=== PATIENT | female | born 1985 | race Caucasian/White ===

== ENCOUNTER 2018-12-04 13:30 | Emergency (ER) | payer OTHER, MEDICAID, SELFPAY ==
[2018-12-04 13:36] VITALS: PULSE 133; RESP 24; TEMP 36.6; O2SAT 100; BMI 24.3
[2018-12-04] MEDS: LORazepam 2 MG/ML INJ 1 MG IM (13:47)
--- NOTE | 2018-12-04 14:11 | PC.NURSE ---
Patient feeling very hot and so gave her cold washcloths, set up fan and gave her cold ice water
[2018-12-04 14:13] LABS: Add Manual Diff / Slide Review NO; Basophils Absolute Auto 100 /uL (0-100); Basophils Percent Auto 0.5 % (0-2); Eosinophils Absolute Auto 200 /uL (0-450); Eosinophils Percent Auto 1.4 % (2-4); Hematocrit 43.7 % (36-46); Hemoglobin 15.5 g/dL (12.0-16.0); Lymphocytes Absolute Auto 1900 /uL (1100-4500); Lymphocytes Percent Auto 18.1 % (25-40); Mean Corpuscular HGB Conc 35.5 % (30-36); Mean Corpuscular Volume 87.2 fL (80-100); Monocytes Absolute Auto 900 /uL (0-900); Monocytes Percent Auto 8.3 % (3-14); Neutrophils Absolute Auto 7600 /uL (1500-7000); Neutrophils Percent Auto 71.7 % (50-75); Platelet Count 262 X10^3/uL (150-400); Red Blood Cell Count 5.01 X10^6/uL (4.0-5.2); Red Cell Distribution Width 13.4 % (11.6-14.8); White Blood Cell Count 10.5 X10^3/uL (4.5-11.0)
[2018-12-04] MEDS: ONDANSETRON 4 MG ODT SL (14:22)
[2018-12-04 14:27] LABS: Alanine Aminotransferase 19 IU/L (9-52); Albumin 4.7 g/dL (3.5-5.0); Albumin Globulin Ratio 1.6 (1.0-2.8); Alkaline Phosphatase 81 U/L (38-126); Aspartate Aminotransferase 30 IU/L (14-36); Bilirubin Total 0.4 mg/dL (0.2-1.3); Blood Urea Nitrogen 14 mg/dL (7-17); Calcium 9.9 mg/dL (8.4-10.2); Carbon Dioxide 20 mmol/L (22-32); Chloride 99 mmol/L (98-107); Estimated Glomerular Filt Rate > 60.0 mL/min (>60); Globulin 2.9 g/dL (1.7-4.1); Glucose 140 mg/dL (70-100); HEMOLYSIS < 15 (0-50); Magnesium 1.8 mg/dL (1.6-2.3); Sodium 138 mmol/L (137-145); Total Protein 7.6 g/dL (6.3-8.2)
[2018-12-04 14:27] LABS: Urine Amphetamines Negative (Negative); Urine Barbiturates Negative (Negative); Urine Benzodiazepines Negative (Negative); Urine Cocaine Negative (Negative); Urine MDMA Negative (Negative); Urine Methadone Negative (Negative); Urine Methamphetamines Negative (Negative); Urine Morphine/Opi cutoff 2000 Negative (Negative); Urine Oxycodone Negative (Negative); Urine Phencyclidine Negative (Negative); Urine Tetrahydrocannabinol Negative (Negative); Urine Tricyclic Antidepressant Negative (Negative)
--- NOTE | 2018-12-04 14:40 | ED_ITS ---
HPI - Anxiety <ODALIS Persaud - Last Filed: 12/05/18 01:42> General Chief Complaint: Anxiety Stated Complaint: Anxiety Time Seen by Provider: 12/04/18 13:38 Source: patient and EMS Mode of arrival: EMS Limitations: no limitations History of Present Illness HPI narrative: This is a 33-year-old transgender male to female, occasional smoker, brought into ED by insole buffer with acute anxiety symptoms. Patient denies chest pain, dizziness but having difficulty breathing. Patient is hy perventilating, shaking and restless when she arrived to ED. Patient reports not taking routinely Ativan but requesting something to calm herself down. She denies taking other illegal substances. Patient reports she had taken triple white chocolate latte which she usually does not take this quantity. Patient reports she has been feeling well recently and this morning. Patient reports he has a history of borderline but he is not here for this problem. She denies suicidal or homicidal ideation and is not seeking counseling services at this time. Related Data Allergies Allergy/AdvReac Type Severity Reaction Status Date / Time No Known Drug Allergies Allergy Verified 12/04/18 13:36 Review of Systems <ODALIS Persaud - Last Filed: 12/05/18 01:42> Review of Systems Narrative: General: Denies fever, chills, fatigue, malaise, sweats. HEENT: Denies sinus pain, ear pain, sore throat, difficulty swallowing, dizziness. Respiratory: Reports dyspnea. Denies Cough, wheezing, hemoptysis, sputum. Cardiovascular: Denies chest pain, palpitations, orthopnea, edema. Gastrointestinal: Denies nausea, vomiting, abdominal pain, diarrhea, constipation, melena. : Denies dysuria, frequency, incontinence, hematuria, urinary retention. Musculoskeletal: Denies weakness, joint pain or bony pain. Skin: Denies rash, skin lesions, or other. Neurologic: Denies weakness, headache, numbness, change in speech, confusion, seizures, incoordination. Psychiatric: See HPI 12-point review of systems is negative except for those stated above. PFSH <ODALIS Persaud - Last Filed: 12/05/18 01:42> Social History Smoking Status: Current some day smoker Exam <Brandon Shivani LAY OUT HELPER - Last Filed: 12/05/18 01:42> Narrative Exam Narrative: GEN: Alert, oriented x 3, very anxious, restless, and hyp erventilating. Head: Normal cephalic, atraumatic. No scalp or temporal tenderness, palpable mass or rash. EYES: Pupils are equal, round, and reactive to light and accommodation. Extraocular muscles are intact bilaterally. There is no subconjunctival hemorrhage, exudate and sclera non-icteric. ENT: Bilateral auditory canals and tympanic membranes clear. Hearing grossly intact. Nose without bleeding, purulent discharge or deviation. Mucous membrane moist, no mucosal lesion. Throat without erythema, tonsillar hypertrophy or exudate. Uvula in midline, airway patent. Neck: Trachea in midline. No JVD, non-tender without lymphadenopathy. No masses or thyroid megaly. Supple, non-tender and no meningeal signs. CARDIAC: Tachycardia rate in 120s. Normal regular rate and rhythm without murmurs, gallops, or rubs. No chest wall tenderness. No peripheral edema, cyanosis or pallor. Capillary refill is less than 2 seconds. RESPIRATORY: Tachypnea and hyperventilating. Lungs are cleat to auscultate bilaterally. No cough, wheezes, rales, or rhonchi. No stridor, respiratory di stress, increase work of breathing, or accessary muscle used. ABD: Abdomen soft, nontender and non-distended. No guarding or rebound tenderness to palpate. Bowel sounds are normal in all 4 quadrants. There is no palpable masses or organomegaly. EXT: Full painless ROM of all extremities with no loss of sensation, strength, effusion or edema. SKIN: Warm, dry, normal color for patient. No erythema, lesions or rash over visible areas. BACK: Nontender without deformity or crepitance. No flank tenderness. NEUROLOGICAL: Alert and oriented to place, time and person. Sensation and motor function intact bilaterally. No facial droops, dysphasia. PSYCHIATRIC: Anxious. No hallucinations. Difficulty following direction during the examination. Cooperative. Patient is not suicidal or homicidal. Initial Vital Signs Initial Vital Signs: Vital Signs Temperature 97.8 F 12/04/18 13:36 Pulse Rate 133 H 12/04/18 13:36 Respiratory Rate 24 12/04/18 13:36 Pulse Oximetry 100 12/04/18 13:36 <Wyatt Love DO - Last Filed: 12/12/18 18:56> Initial Vital Signs Initial Vital Signs: Vital Signs Temperature 97.8 F 12/04/18 13:36 Pulse Rate 133 H 12/04/18 13:36 Respiratory Rate 24 12/04/18 13:36 Pulse Oximetry 100 12/04/18 13:36 Course <ODALIS Persaud - Last Filed: 12/05/18 01:42> Orders Ordered: Discontinued Medications Lorazepam (Ativan) 1 mg IM NOW ONE Stop: 12/04/18 13:39 Last Admin: 12/04/18 13:47 Dose: 1 mg Documented by: SCANAPO Ondansetron HCl (Zofran Odt) 4 mg SL NOW ONE Stop: 12/04/18 14:14 Last Admin: 12/04/18 14:22 Dose: 4 mg Documented by: SCANAPO Potassium Chloride (Klor-Con M20) 40 meq PO NOW ONE Stop: 12/04/18 14:44 Last Admin: 12/04/18 15:16 Dose: 40 meq Documented by: SCANAPO Vital Signs Vital signs: Vital Signs - 8 hr 12/04/18 13:36 Temperature 97.8 F Pulse Rate 133 H Respiratory Rate 24 Pulse Oximetry 100 <Wyatt Love DO - Last Filed: 12/12/18 18:56> Orders Ordered: Discontinued Medications Lorazepam (Ativan) 1 mg IM NOW ONE Stop: 12/04/18 13:39 Last Admin: 12/04/18 13:47 Dose: 1 mg Documented by: SCANAPO Ondansetron HCl (Zofran Odt) 4 mg SL NOW ONE Stop: 12/04/18 14:14 Last Admin: 12/04/18 14:22 Dose: 4 mg Documented by: SCANAPO Potassium Chloride (Klor-Con M20) 40 meq PO NOW ONE Stop: 12/04/18 14:44 Last Admin: 12/04/18 15:16 Dose: 40 meq Documented by: SCANAPO Vital Signs Vital signs: Vital Signs - 8 hr 12/04/18 13:36 Temperature 97.8 F Pulse Rate 133 H Respiratory Rate 24 Pulse Oximetry 100 MDM - Anxiety <ODALIS Persaud - Last Filed: 12/05/18 01:42> Differential Diagnosis Differential diagnosis: Likely hyperventilation, panic disorder, acute anxiety and other (SVT) Medical Records Attestation: I reviewed the patient's medical records. Lab Data Attestation: I reviewed the patient's lab results. Result diagrams: 12/04/18 14:04 12/04/18 14:04 Labs: Lab Results 12/04/18 12/04/18 12/04/18 Range/Units 14:00 14:04 14:04 WBC 10.5 (4.5-11.0) X10^3/uL RBC 5.01 (4.0-5.2) X10^6/uL Hgb 15.5 (12.0-16.0) g/dL Hct 43.7 (36-46) % MCV 87.2 (80-100) fL MCH 31.0 (26-34) PG MCHC 35.5 (30-36) % RDW 13.4 (11.6-14.8) % Plt Count 262 (150-400) X10^3/uL Neut % (Auto) 71.7 (50-75) % Lymph % (Auto) 18.1 L (25-40) % Snyder % (Auto) 8.3 (3-14) % Eos % (Auto) 1.4 L (2-4) % Baso % (Auto) 0.5 (0-2) % Neut # (Auto) 7600 H (1327-9011) /uL Lymph # (Auto) 1900 (4162-8217) /uL Snyder # (Auto) 900 (0-900) /uL Eos # (Auto) 200 (0-450) /uL Baso # (Auto) 100 (0-100) /uL Sodium 138 (137-145) mmol/L Potassium 3.0 L (3.4-5.1) mmol/L Chloride 99 (98-107) mmol/L Carbon Dioxide 20 L (22-32) mmol/L BUN 14 (7-17) mg/dL Creatinine 0.70 (0.52-1.04) mg/dL Estimated GFR > 60.0 (>60) mL/min BUN/Creatinine Ratio 20.0 (6-22) Glucose 140 H (70-100) mg/dL Calcium 9.9 (8.4-10.2) mg/dL Magnesium 1.8 (1.6-2.3) mg/dL Total Bilirubin 0.4 (0.2-1.3) mg/dL AST 30 (14-36) IU/L ALT 19 (9-52) IU/L Alkaline Phosphatase 81 (38-126) U/L Total Protein 7.6 (6.3-8.2) g/dL Albumin 4.7 (3.5-5.0) g/dL Globulin 2.9 (1.7-4.1) g/dL Albumin/Globulin Ratio 1.6 (1.0-2.8) Urine Opiates Screen Negative (Negative) Ur Oxycodone Screen Negative (Negative) Urine Methadone Screen Negative (Negative) Ur Barbiturates Screen Negative (Negative) U Tricyclic Antidepress Negative (Negative) Ur Phencyclidine Scrn Negative (Negative) Ur Amphetamines Screen Negative (Negative) U Methamphetamines Scrn Negative (Negative) Ur MDMA Scrn (Ecstasy) Negative (Negative) U Benzodiazepines Scrn Negative (Negative) Urine Cocaine Screen Negative (Negative) U Marijuana (THC) Screen Negative (Negative) ECG Data Attestation: I personally reviewed and interpreted this ECG as follows: Prior ECG tracings: not available for review Interpretation: Sinus rhythm rate in 92. Normal axis. No ST elevation or depression. MDM Narrative Medical decision making narrative: This patient, transgender to female, was brought in by [facility] medics with acute anxiety/panic attack. Patient had physical symptoms such as dyspnea with tachycardia in 120s to 130s when she arrived. William juan reports had 3 shots of a lot this morning which patient usually does not consume this much of caffeine. Patient denies other stress factors at this time, patient denies suicidal or homicidal ideation. Patient was medicated with Ativan and Zofran for anxiety and nausea. Patient heart rate has decreased to 80s to 90s in sinus rhythm the medication and redirection to slow down the breathing with controlled deep breathing exercise. Patient's potassium was mildly low as 3.0 and replaced with oral KCl 40 mEq prior DC to home. Normal magnesium level. Otherwise, other blood tests were unremarkable. Patient reports feeling better and was able to tolerate p.o. fluids and crackers. Patient's UDS was negative. She reports feeling better ready to be discharged to home in Monday. Patient advised to take potassium rich food daily if he has had hypokalemia in the past. Return precautions were discussed with the patient and patient agrees with treatment plan and no further questions were expressed at this time. <Wyatt Love DO - Last Filed: 12/12/18 18:56> Lab Data Labs: Lab Results 12/04/18 12/04/18 12/04/18 Range/Units 14:00 14:04 14:04 WBC 10.5 (4.5-11.0) X10^3/uL RBC 5.01 (4.0-5.2) X10^6/uL Hgb 15.5 (12.0-16.0) g/dL Hct 43.7 (36-46) % MCV 87.2 (80-100) fL MCH 31.0 (26-34) PG MCHC 35.5 (30-36) % RDW 13.4 (11.6-14.8) % Plt Count 262 (150-400) X10^3/uL Neut % (Auto) 71.7 (50-75) % Lymph % (Auto) 18.1 L (25-40) % Snyder % (Auto) 8.3 (3-14) % Eos % (Auto) 1.4 L (2-4) % Baso % (Auto) 0.5 (0-2) % Neut # (Auto) 7600 H (7553-0161) /uL Lymph # (Auto) 1900 (7043-5765) /uL Snyder # (Auto) 900 (0-900) /uL Eos # (Auto) 200 (0-450) /uL Baso # (Auto) 100 (0-100) /uL Sodium 138 (137-145) mmol/L Potassium 3.0 L (3.4-5.1) mmol/L Chloride 99 (98-107) mmol/L Carbon Dioxide 20 L (22-32) mmol/L BUN 14 (7-17) mg/dL Creatinine 0.70 (0.52-1.04) mg/dL Estimated GFR > 60.0 (>60) mL/min BUN/Creatinine Ratio 20.0 (6-22) Glucose 140 H (70-100) mg/dL Calcium 9.9 (8.4-10.2) mg/dL Magnesium 1.8 (1.6-2.3) mg/dL Total Bilirubin 0.4 (0.2-1.3) mg/dL AST 30 (14-36) IU/L ALT 19 (9-52) IU/L Alkaline Phosphatase 81 (38-126) U/L Total Protein 7.6 (6.3-8.2) g/dL Albumin 4.7 (3.5-5.0) g/dL Globulin 2.9 (1.7-4.1) g/dL Albumin/Globulin Ratio 1.6 (1.0-2.8) Urine Opiates Screen Negative (Negative) Ur Oxycodone Screen Negative (Negative) Urine Methadone Screen Negative (Negative) Ur Barbiturates Screen Negative (Negative) U Tricyclic Antidepress Negative (Negative) Ur Phencyclidine Scrn Negative (Negative) Ur Amphetamines Screen Negative (Negative) U Methamphetamines Scrn Negative (Negative) Ur MDMA Scrn (Ecstasy) Negative (Negative) U Benzodiazepines Scrn Negative (Negative) Urine Cocaine Screen Negative (Negative) U Marijuana (THC) Screen Negative (Negative) Discharge Plan Departure Patient Disposition: Home Clinical Impression: Acute anxiety, Hypokalemia Discharge Date/Time: 12/04/18 15:40 Instructions: DI for Anxiety -- Adult, DI for Hypokalemia Activity Restrictions/Additional Instructions: You have been diagnosed with [acute anxiety/panic attack and hypokalemia. Otherwise, the EKG when the symptoms improved and other blood tests were unremarkable]. What to do: *Take your medications as directed. There is no new medication to go home with. However, please increase potassium rich foods in her diet daily, especially if you had this problem before. If you do have anxiety frequently, it would be beneficial to seek out counseling service. Please contact your insurance comp any to see any counselor is available near where you live. *Follow up with your primary care provider in 2-3 days, call for an appointment. Let them know you were seen in the ED and that we asked you to be seen in follow up. *Return to ED if you have any new, worsening, or concerning symptoms, such as [chest pain, breathing difficulty, unable to tolerate fluids, dizziness, any acute concerns]. Referrals: [facility] [Outside] <Wyatt Love DO - Last Filed: 12/12/18 18:56> Sign Out Provider Sign Out Attestation: I was available for consultation during this patient's emergency department encounter
[2018-12-04 14:47] VITALS: PULSE 86; O2SAT 100
[2018-12-04] MEDS: POTASSIUM CHLORIDE 20 MEQ TAB 40 MEQ PO (15:16)
== END 2018-12-04 15:40 | disposition home or self-care (01) ==
PROVIDERS: Emergency Provider Nurse Practitioner Family
DX: F41.9 Anxiety disorder, unspecified (principal); E87.6 Hypokalemia
CPT/HCPCS: 36415; 80053; 80305; 83735; 85025; 93005; 96372; 99282; 99284; J2060